=== PATIENT | male | born 1945 | race Caucasian/White ===

== ENCOUNTER 2019-03-13 11:29 | Emergency (ER) | payer MEDICARE ==
[~2019-03-13] VITALS: Ht 165.1 cm; Wt 59.1 kg
[~2019-03-13 11:29] MED LIST: ASPI81TA39 PO; ATOR40TA28 PO; DICL75TA5 PO; LEVO50 PO; TERA5CAP12 PO
[2019-03-13] MEDS ORDERED: FINA5TAB41 PO (11:43)
[2019-03-13] MEDS ORDERED: IBUP-2070 PO (11:43)
[2019-03-13] MEDS ORDERED: MECLIZINE HCL 25 MG TABLET PO ONE ×2 (12:45→16:45)
[2019-03-13 12:59] LABS: BASOPHILS % (AUTO) 0.3 % (0.0-2.0); EOSINOPHILS % (AUTO) 0.3 % (1.0-6.0); HEMATOCRIT 38.6 % (41-53); HEMOGLOBIN 12.6 g/dL (13.5-17.5); LYMPHOCYTES # (AUTO) 1.5 K/uL (1.0-4.8); LYMPHOCYTES % (AUTO) 19.3 % (22.0-44.0); MEAN CORPUSCULAR HEMOGLOBIN 30.7 pg (26.0-34.0); MEAN CORPUSCULAR HGB CONC 32.7 G/dL (31.0-37.0); MEAN CORPUSCULAR VOLUME 94 fL (80-100); MONOCYTES # (AUTO) 0.4 K/uL (0.1-1.0); MONOCYTES % (AUTO) 5.6 % (2.0-9.0); NEUTROPHILS # (AUTO) 5.8 K/uL (1.8-7.7); NEUTROPHILS % (AUTO) 74.5 % (40.0-70.0); PLATELET COUNT (AUTO) 295 K/uL (150-450); RED BLOOD CELL COUNT(AUTO) 4.11 MIL/uL (4.50-5.90); RED CELL DISTRIBUTION WIDTH 13.7 % (11.5-14.5)
[2019-03-13 13:06] LABS: ANION GAP 9 mmol/L (8-16); CALCIUM, TOTAL 9.4 mg/dL (8.8-10.5); CARBON DIOXIDE 26 mmol/L (22-29); CHLORIDE 101 mmol/L (98-107); CREATININE 1.04 mg/dL (0.60-1.30); GLUCOSE,RANDOM 174 mg/dL (70-110); POTASSIUM 4.4 mmol/L (3.5-5.1); SODIUM SERUM 136 mmol/L (136-145); UREA NITROGEN, BLOOD 24 mg/dL (7-18)
[2019-03-13 13:09] LABS: GLOMERULAR FILTR. RATE CALC > 60 mL/min (>60)
[2019-03-13 13:12] LABS: ALANINE AMINOTRANSFERASE 30 U/L (12-78); ALBUMIN 3.6 g/dL (3.4-5.0); ALKALINE PHOSPHATASE 120 U/L (46-116); ASPARTATE AMINOTRANSFERASE 23 U/L (15-37); BILIRUBIN,TOTAL 0.7 mg/dL (0.1-1.0); TOTAL PROTEIN, SERUM 6.5 g/dL (6.4-8.2)
[2019-03-13] MEDS ORDERED: SODIUM CHLORIDE 0.9% 100 ML ONE (15:25)
[2019-03-13] MEDS ORDERED: IOVERSOL 350 MG/ML 100 ML VIAL ONE (15:25)
[2019-03-13 18:14] VITALS: BP 120/69
== END 2019-03-13 18:51 | disposition home or self-care (01) ==
LOC: EMS 11:30
DX: R42 Dizziness and giddiness (principal); R11.0 Nausea; I10 Essential (primary) hypertension; E78.00 Pure hypercholesterolemia, unspecified; E03.9 Hypothyroidism, unspecified; Z90.49 Acquired absence of other specified parts of digestive tract; Z79.82 Long term (current) use of aspirin
CPT/HCPCS: 36415; 70450; 70496; 80053; 84484; 85025; 93005; 99284; J7050; Q9967